=== PATIENT | female | born 1960 | race Asian ===

== ENCOUNTER 2016-09-10 09:08 | Day surgery (SDC) | payer OTHER ==
[2016-09-10 09:24] VITALS: BMI 22.9
[2016-09-10] MEDS ORDERED: PROPOFOL 20 ML ONE ×2 (09:33)
[2016-09-10 10:57] VITALS: TEMP 98.4
[2016-09-10 11:28] VITALS: BP 123/61; PULSE 70
== END 2016-09-10 11:25 | disposition home or self-care (01) ==
LOC: FASU-ENDO 09:08
PROVIDERS: ATTEND Internal Medicine Gastroenterology
PROC: 0DJD8ZZ Inspection of Lower Intestinal Tract, Via Natural or Artificial Opening Endoscopic (ICD-10-PCS; principal; 2016-09-10 10:34)
DX: Z12.11 Encounter for screening for malignant neoplasm of colon (principal)